=== PATIENT | female | born 1985 | race Caucasian/White ===

== ENCOUNTER 2021-02-25 14:04 | Emergency (ER) | payer OTHER ==
[2021-02-25 14:56] LABS: BILIRUBIN NEGATIVE (NEGATIVE); BLOOD 2+ Ery/uL (NEGATIVE); CLARITY CLEAR (CLEAR); COLOR YELLOW (YELLOW); GLUCOSE (U) NORMAL (NORMAL); LEUKOCYTES NEGATIVE Leu/uL (NEGATIVE); NITRITE NEGATIVE (NEGATIVE); PROTEIN 1+ mg/dL (NEGATIVE); SPECIFIC GRAVITY 1.025 (1.001-1.030); UROBILINOGEN 0.2 mg/dL (0.2-1.0)
[2021-02-25 15:05] LABS: BASOPHIL 0.8 % (0-2); EOSINOPHIL 1.6 % (0-5); HCT 43.1 % (37.0-47.0); HGB 14.1 g/dl (12.5-16.0); LYMPHOCYTE 21.9 % (15-48); MCH 29.2 pg (25.0-31.0); MCHC 32.7 g/dL (32.0-36.0); MCV 89.2 fL (78.0-100.0); MONOCYTE 6.6 % (0-12); MPV 9.7 fL (6.0-9.5); NEUTROPHIL 68.7 % (41-80); NRBC 0; PLT 336 K/uL (150-400); RBC 4.83 M/uL (4.20-5.40); RDW 12.8 % (11.5-14.0); WBC 10.5 K/uL (4.0-10.5)
[2021-02-25 15:13] LABS: BUN/CREAT RATIO (CALC) 9.5 RATIO; CREATININE 0.84 mg/dL (0.51-0.95); POTASSIUM 3.9 mmol/L (3.5-5.1)
[2021-02-25 15:38] LABS: BACTERIA TRACE
[2021-02-25] MEDS ORDERED: NORCO 5-325 TA1 EACH PO (16:47)
[2021-02-25] MEDS ORDERED: ONDANSETRON ODT4 MG PO (16:47)
[2021-02-25] MEDS ORDERED: NAPROXEN500 MG PO (16:47)
== END 2021-02-25 16:50 | disposition home or self-care (01) ==
LOC: FER 14:04
PROVIDERS: Emergency Medicine
DX: N13.2 Hydronephrosis with renal and ureteral calculous obstruction (principal)
CPT/HCPCS: 36415; 80048; 81001; 85025; J1885

== ENCOUNTER 2021-12-18 21:47 | Emergency (ER) | payer OTHER ==
[~2021-12-18 21:47] MED LIST: NAPROXEN500 MG PO; NORCO 5-325 TA1 EACH PO; ONDANSETRON ODT4 MG PO
[2021-12-18 23:17] LABS: BILIRUBIN NEGATIVE (NEGATIVE); BLOOD 3+ Ery/uL (NEGATIVE); CLARITY CLEAR (CLEAR); COLOR YELLOW (YELLOW); GLUCOSE (U) NORMAL (NORMAL); LEUKOCYTES 1+ Leu/uL (NEGATIVE); NITRITE NEGATIVE (NEGATIVE); PROTEIN NEGATIVE (NEGATIVE); SPECIFIC GRAVITY >=1.030 (1.001-1.030); UROBILINOGEN 0.2 mg/dL (0.2-1.0)
[2021-12-18 23:26] LABS: AMORPHOUS URATES CRYSTALS TRACE; BACTERIA 1+; MUCOUS TRACE; URINARY RBC 20-50
[2021-12-18 23:57] LABS: BASOPHIL 0.8 % (0-2); HCT 45.9 % (37.0-47.0); HGB 14.9 g/dl (12.5-16.0); LYMPHOCYTE 24.3 % (15-48); MCH 29.5 pg (25.0-31.0); MCHC 32.5 g/dL (32.0-36.0); MCV 90.9 fL (78.0-100.0); MPV 9.6 fL (6.0-9.5); NEUTROPHIL 63.5 % (41-80); NRBC 0; PLT 267 K/uL (150-400); RBC 5.05 M/uL (4.20-5.40); RDW 12.8 % (11.5-14.0); WBC 12.3 K/uL (4.0-10.5)
[2021-12-19 00:13] LABS: ALBUMIN 3.9 g/dL (3.4-5.0); BILIRUBIN - TOTAL 0.2 mg/dL (0.2-1.0); BUN/CREAT RATIO (CALC) 13.6 RATIO; CREATININE 0.81 mg/dL (0.51-0.95); GLOBULIN (CALCULATION) 3.6 g/dL; POTASSIUM 3.6 mmol/L (3.5-5.1); TOTAL PROTEIN 7.5 g/dL (6.4-8.2)
[2021-12-19] MEDS ORDERED: NAPROXEN500 MG PO (00:55)
[2021-12-19] MEDS ORDERED: NORCO 5-325 TA1 EACH PO (00:55)
== END 2021-12-19 01:25 | disposition home or self-care (01) ==
LOC: FER 21:47
PROVIDERS: Physician Assistant
DX: R10.9 Unspecified abdominal pain (principal); R31.9 Hematuria, unspecified; I10 Essential (primary) hypertension; Z28.311 Partially vaccinated for COVID-19
CPT/HCPCS: 36415; 80053; 81001; 83690; 85025; J1885; J7030